=== PATIENT | male | born 1975 ===

== ENCOUNTER 2017-04-09 14:42 | Emergency (ER) | payer BC ==
[2017-04-09] MEDS ORDERED: Lidocaine 1% Inj (20ml) ONE (14:44)
[2017-04-09 14:46] VITALS: BMI 31.2
[2017-04-09] MEDS ORDERED: Lidocaine 1% (10 ml) Inj INFIL STA (14:46)
[2017-04-09] MEDS ORDERED: TDAP Vaccine 0.5 mL Syr IM ONE (14:46)
[2017-04-09 14:47] VITALS: BP 134/88; PULSE 114; RESP 16; TEMP 98; O2SAT 99
--- NOTE | 2017-04-09 15:07 | ED PDOC ---
HPI: General Adult Time Seen by Provider: 04/09/17 14:43 Chief Complaint (Nursing): Abnormal Skin Integrity Chief Complaint (Provider): Laceration on Left Palm History Per: Patient History/Exam Limitations: no limitations Onset/Duration Of Symptoms: Hrs Current Symptoms Are (Timing): Still Present Additional Complaint(s): Yovany Guerrero is a 41 year old male that presents to the ED with a chief complaint of a laceration on his left palm that he obtained as a result of installing a faucet. Patient reports that the knob of the faucet broke off and the water started spurting out of it, and while attempting to put the knob back on, his hand slipped and became caught in the metal. Tetanus vaccination unknown. Past Medical History Reviewed: Historical Data, Nursing Documentation, Vital Signs Vital Signs: Last Vital Signs Temp 98.0 F 04/09/17 14:44 Pulse 114 H 04/09/17 14:44 Resp 16 04/09/17 14:44 BP 134/88 04/09/17 14:44 Pulse Ox 99 04/09/17 15:44 - Family History Family History: States: Unknown Family Hx - Allergies Allergies/Adverse Reactions: Allergies Allergy/AdvReac Type Severity Reaction Status Date / Time No Known Allergies Allergy Verified 04/09/17 14:44 Review of Systems Musculoskeletal: Positive for: Hand Pain (left hand pain due to laceration on his left palm) Physical Exam - Reviewed Nursing Documentation Reviewed: Yes Vital Signs Reviewed: Yes - Physical Exam Appears: Positive for: Non-toxic, No Acute Distress Head Exam: Positive for: ATRAUMATIC, NORMOCEPHALIC Skin: Positive for: Normal Color, Warm Eye Exam: Positive for: Normal appearance, EOMI, PERRL Pulses-Radial (L): 2+ Pulses-Radial (R): 2+ Extremity: Positive for: Capillary Refill (2+), Other (7 cm jagged curved laceration of left palm) Neurologic/Psych: Positive for: Alert, Oriented, Other (sensation intact). Negative for: Motor/Sensory Deficits - ECG O2 Sat by Pulse Oximetry: 99 (RA) Pulse Ox Interpretation: Normal Medical Decision Making Medical Decision Making: Impression: Laceration on Left Palm Plan: * Lidocaine HCl 0.5% INJ * TDAP Vaccine * Laceration Repair Scribe Attestation: Documented by Cherie Winston, acting as a scribe for Carolina Mosqueda PA-C. Provider Scribe Attestation: All medical record entries made by the Scribe were at my direction and personally dictated by me. I have reviewed the chart and agree that the record accurately reflects my personal performance of the history, physical exam, medical decision making, and the department course for this patient. I have also personally directed, reviewed, and agree with the discharge instructions and disposition. Procedures - Laceration/Wound Repair Left Hand Wound Length (cm): 7 (jagged, curved wound) Wound's Depth, Shape: irregular Anesthesia: 1% Lidocaine Volume Anesthetic (ccs): 5 Wound Repaired With: Sutures Suture Size/Type: 4:0 Number of Sutures: 8 (interrupted) Wound Complexity: Simple Sterile Dressing Applied?: Yes (used antibitoic ointment) Disposition - Patient ED Disposition Is Patient to be Admitted: No - Disposition Disposition: Routine/Home Disposition Time: 15:43 Condition: STABLE
== END 2017-04-09 16:06 | disposition home or self-care (01) ==
LOC: H.ER 14:42
DX: S61.412A Laceration without foreign body of left hand, initial encounter (principal); W22.8XXA Striking against or struck by other objects, initial encounter; Y92.89 Other specified places as the place of occurrence of the external cause